=== PATIENT | female | born 1980 | race Caucasian/White ===

== ENCOUNTER 2019-05-20 06:57 | Inpatient (IN) | payer BC ==
[2019-05-20] MEDS ORDERED: Celecoxib 200 MG Cap PO ONE (07:15)
[2019-05-20] MEDS ORDERED: Acetaminophen 500 MG Tab PO ONE (07:15)
[2019-05-20] MEDS ORDERED: Scopolamine 1.5 MG Transdermal Patch TOP ONE (07:15)
[2019-05-20] MEDS ORDERED: Gabapentin 300 MG Cap PO ONE (07:15)
[2019-05-20] MEDS ORDERED: Ondansetron 4 MG/2 ML SDV ONE (07:58)
[2019-05-20] MEDS ORDERED: Glycopyrrolate 0.2 MG/ML 5 ML MDV ONE (07:58)
[2019-05-20] MEDS ORDERED: Propofol 200 MG/20 ML SDV ONE (07:58)
[2019-05-20] MEDS ORDERED: Succinylcholine 200 MG/10 ML MDV ONE (07:58)
[2019-05-20] MEDS ORDERED: Rocuronium 50 MG/5 ML Vial ONE (07:58)
[2019-05-20] MEDS ORDERED: Neostigmine Methylsulfate 1 MG/ML 5 ML Syringe ONE (07:58)
[2019-05-20] MEDS ORDERED: fentaNYL 250 MCG/5 ML SDV ONE (07:58)
[2019-05-20] MEDS ORDERED: Dexamethasone 4 MG/ML SDV ONE (07:58)
[2019-05-20] MEDS ORDERED: Dextrose 5%-Lactated Ringers 1,000 ML IV SCH (08:00)
[2019-05-20] MEDS ORDERED: Lactated Ringers 1,000 ML ONE (08:01)
[2019-05-20] MEDS ORDERED: Ketamine 500 MG/5 ML MDV IV SCH (09:00)
[2019-05-20] MEDS ORDERED: Magnesium Sulfate 6.5 GM in Sodium Chloride 0.9% 250 ML IV ONE (09:00)
[2019-05-20] MEDS ORDERED: Ketamine 50 MG in Sodium Chloride 0.9% 49.5 ML IV SCH (09:00)
[2019-05-20] MEDS ORDERED: cefOXitin 2 GM in Sodium Chloride 0.9% 50 ML IV ONE (09:00)
[2019-05-20] MEDS: cefOXitin 2 GM Vial ONE ×2 (09:51→10:05)
[2019-05-20] MEDS ORDERED: fentaNYL 100 MCG/2 ML SDV IVPUSH ONE (10:51)
[2019-05-20] MEDS ORDERED: hydrOXYzine HCL 100 MG/2 ML SDV IM ONE (10:51)
[2019-05-20] MEDS ORDERED: Labetalol 20 MG/4 ML Syringe IVPUSH PRN (11:59)
[2019-05-20] MEDS ORDERED: hydrOXYzine HCL 100 MG/2 ML SDV IM PRN (11:59)
[2019-05-20] MEDS ORDERED: Cyclobenzaprine 10 MG Tab PO PRN (11:59)
[2019-05-20] MEDS ORDERED: HYDROmorphone 1 MG/ML Syringe IV PRN (11:59)
[2019-05-20] MEDS ORDERED: Calcium Gluconate 10% 1 GM/10 ML SDV IVPUSH PRN (11:59)
[2019-05-20] MEDS ORDERED: Metoclopramide 10 MG/2 ML SDV IVPUSH PRN (11:59)
[2019-05-20] MEDS ORDERED: oxyCODONE 5 MG Tab PO PRN (11:59)
[2019-05-20] MEDS ORDERED: HYDROmorphone 0.5 MG/0.5 ML Syringe IVPUSH PRN (11:59)
[2019-05-20] MEDS ORDERED: diphenhydrAMINE 50 MG/ML SDV IVPUSH PRN (11:59)
[2019-05-20] MEDS ORDERED: Acetaminophen 500 MG Tab PO PRN (11:59)
[2019-05-20] MEDS ORDERED: LORazepam 1 MG Tab PO PRN (12:02)
[2019-05-20] MEDS: Ondansetron 4 MG/2 ML SDV IVPUSH PRN ×2 (13:11→17:18)
[2019-05-20] MEDS: Dextrose 5%-Lactated Ringers 1,000 ML IV SCH ×2 (14:14→23:42)
[2019-05-20] MEDS: Gabapentin 250 MG/5 ML Solution ML 470 ML Bottle PO SCH ×2 (14:46→20:25)
[2019-05-20] MEDS ORDERED: Pantoprazole 40 MG Vial IVPUSH SCH (16:00)
[2019-05-20] MEDS ORDERED: MVI, Adult with Vitamin K 10 ML, Thiamine 200 MG, Chromium/Copper/Mang/Selen/Zn 1 ML in... IV SCH ×4 (16:00)
[2019-05-20] MEDS: cefOXitin 2 GM in Sodium Chloride 0.9% 50 ML IV SCH ×2 (16:28→21:13)
[2019-05-20] MEDS: Heparin Sodium 5,000 Units/ML Vial SUBCUT SCH (16:31)
[2019-05-20] MEDS: Acetaminophen 500 MG Tab PO SCH (16:32)
[2019-05-21] MEDS: Acetaminophen 500 MG Tab PO SCH ×3 (00:56→16:35)
[2019-05-21] MEDS: cefOXitin 2 GM in Sodium Chloride 0.9% 50 ML IV SCH (03:39)
[2019-05-21] MEDS: Heparin Sodium 5,000 Units/ML Vial SUBCUT SCH ×2 (03:42→16:34)
[2019-05-21] MEDS ORDERED: Iopamidol 612 MG/ML 50 ML SDV PO STA (03:53)
[2019-05-21] MEDS: Dextrose 5%-Lactated Ringers 1,000 ML IV SCH (05:36)
[2019-05-21] MEDS ORDERED: LORazepam 1 MG Tab PO PRN (07:26)
[2019-05-21] MEDS ORDERED: Dextrose 5%-Lactated Ringers 1,000 ML IV SCH (07:30)
[2019-05-21] MEDS: Celecoxib 200 MG Cap PO SCH ×2 (08:06→20:38)
[2019-05-21] MEDS: FLUoxetine 20 MG Cap PO SCH (08:06)
[2019-05-21] MEDS: Gabapentin 250 MG/5 ML Solution ML 470 ML Bottle PO SCH ×3 (08:11→20:38)
[2019-05-21] MEDS: SCOPOLAMINE PATCH CHECK TOP SCH (08:18)
--- NOTE | 2019-05-21 08:30 | PN ---
DATE OF SERVICE: 05/21/2019 SUBJECTIVE: Erika is postoperative day #1. Her upper GI this morning was normal. She has been up, ambulating. Oral intake on a step 1 gastric bypass diet was 540. Urine output 2700. TIO drain put out 200 mL of a light red drainage. Pain has been controlled. REVIEW OF SYSTEMS: Remainder of review of systems negative for any pertinent positives and negatives. OBJECTIVE: GENERAL: Erika Quiroga is a pleasant 38-year-old female. Alert and orientated. VITAL SIGNS: TPR at 07:30, 97.9, 71, 16, blood pressure 148/91. HEENT: Negative. NECK: Supple. HEART: Regular rate and rhythm. LUNGS: Clear. ABDOMEN: Dressings dry and intact. Abdominal binder is on. EXTREMITIES: Without peripheral edema. ASSESSMENT: Laparoscopic sleeve gastrectomy, liver biopsy, repair of diaphragmatic hernia and excision of mediastinal lipoma for morbid obesity, hepatomegaly, diaphragmatic hernia, mediastinal lipoma. Date of surgery: 05/20/2019. Surgeon: Sam Durham MD. PLAN: Decrease IV to 100 mL per hour. Discontinue cardiac monitoring. May shower. Step 2 gastric bypass diet with no cereal. Zofran ODT 4 mg sublingual q.4 hours p.r.n. nausea. May convert IV to saline lock if oral intake around 1000 mL. Communication order: 3 med cups at bedside to record intake and to drink 1 med cup every 20 minutes or 3 per hour. Fluoxetine 40 mg p.o. daily and lorazepam/Ativan 1 mg p.o. as directed p.r.n. Continue good pulmonary toilet. We will evaluate p.r.n. or in a.m. Annemarie Quiroga PA-C /[id number]
--- NOTE | 2019-05-21 08:55 | CR ---
[facility] HISTORY: Postbariatric surgery FINDINGS: Patient swallowed water-soluble contrast. Upright views of the abdomen show no evidence of extravasation or obstruction. Surgical drain is in place. IMPRESSION: Status post bariatric surgery No extravasation or obstruction seen
[2019-05-21] MEDS ORDERED: Non-Formulary Medication 1 Each (Fluoxetine Hcl [Fluoxetine Hcl] 40 MG) PO SCH (09:00)
[2019-05-21] MEDS ORDERED: CHECK SCOPOLAMINE PATCH DAILY TOP SCH (09:00)
[2019-05-21] MEDS ORDERED: Pantoprazole 40 MG Delayed-Release Granules 1 Packet PO SCH (16:00)
[2019-05-21] MEDS: Ondansetron 4 MG Tab.DIS PO PRN ×2 (16:42→20:39)
[2019-05-22] MEDS: Acetaminophen 500 MG Tab PO SCH ×2 (00:49→07:28)
[2019-05-22] MEDS: Heparin Sodium 5,000 Units/ML Vial SUBCUT SCH (05:15)
--- NOTE | 2019-05-22 08:46 | DISCH ---
ADMISSION DIAGNOSES: 1. Morbid obesity. 2. BMI 41.3. 3. Mild depression. 4. Severe obstructive sleep apnea. 5. Herpes simplex vulvovaginitis. DISCHARGE DIAGNOSES: 1. Laparoscopic sleeve gastrectomy, liver biopsy, repair of diaphragmatic hernia, and excision of mediastinal lipoma for morbid obesity, hepatomegaly, diaphragmatic hernia, and mediastinal lipoma. 2. Date of surgery: 05/20/2019. Surgeon: Sam Durham MD. HISTORY: Erika Quiroga is a pleasant 38-year-old female with longstanding history of morbid obesity and increasing comorbidities. After preoperative evaluation and discussion of possible risks and possible complications, she wished to proceed with surgical procedure. HOSPITAL COURSE: Erika had her surgery on 05/20/2019. She had no operative complications. On postoperative day #1, her upper GI was normal. She was started on step 2 gastric bypass with no cereal. IV was decreased. She was able to shower. Her activity was good. Vital signs remained stable. On postoperative day #2, pain was controlled. Oral intake adequate. She received dietary instruction of vitamin B12 1000 mcg IM injection and she was able to be discharged to home in stable condition. PHYSICAL EXAMINATION: GENERAL: Erika Quiroga is a 38-year-old female. VITAL SIGNS: Height is 5 feet 10 inches, weight is 288 pounds. BMI is 41.3. TPR at 03:10, 97.2; 78, 16, blood pressure 108/50. HEENT: Negative. NECK: Supple. HEART: Regular rate and rhythm. LUNGS: Clear. ABDOMEN: Sutures intact at the time of exam. TIO drain was in, it will be discontinued prior to discharge. Abdominal binder is on. EXTREMITIES: Without peripheral edema. DISPOSITION: Discharged to home. CONDITION: Stable and improving. FOLLOWUP: Appointment with Annemarie Quiroga PA-C, on 05/28/2019 at 9:15 a.m. Appointment to be at [place], [place]. HOME MEDICATIONS: 1. Tylenol 1000 mg every 8 hours for pain. 2. Celebrex 200 mg p.o. b.i.d. 3. Zofran ODT 4 mg every 4 hours p.r.n. nausea. 4. She is to resume;. a. Fluoxetine 40 mg oral daily. b. Lorazepam 1 mg oral as directed p.r.n. anxiety. c. Valacyclovir 1000 mg p.o. oral as needed 1 tablet daily for 5 days. 5. Discontinue taking vitamins and supplements until first postop appointment. DIET: Step 2 gastric bypass diet with no cereal for 30 days until 06/21/2019. ACTIVITY AFTER DISCHARGE: No lifting over 10 pounds for 2 weeks. Other activity; walk inside your home 6 times a day. Driving: Do not drive for 1 week. Shower/bathing: May shower. DISCHARGE INSTRUCTIONS: Notify provider if any fever, increased pain, nausea, vomiting. Wear abdominal binder for 2 weeks and then as tolerated. SPECIAL INSTRUCTIONS: Use incentive spirometer 10 times every hour while awake for 1 week.
[2019-05-22] MEDS ORDERED: Cyanocobalamin (Vitamin B12) 1,000 MCG/ML SDV IM ONE (09:00)
[2019-05-22] MEDS: FLUoxetine 20 MG Cap PO SCH (09:24)
[2019-05-22] MEDS: SCOPOLAMINE PATCH CHECK TOP SCH (09:25)
[2019-05-22] MEDS: Celecoxib 200 MG Cap PO SCH (09:25)
[2019-05-22] MEDS: Gabapentin 250 MG/5 ML Solution ML 470 ML Bottle PO SCH (09:32)
--- NOTE | 2019-05-30 08:18 | OR ---
DATE OF PROCEDURE: 05/20/2019 SURGEON: Sam Durham MD PREOPERATIVE DIAGNOSIS: Morbid obesity. POSTOPERATIVE DIAGNOSES: 1. Morbid obesity. 2. Marked hepatomegaly. 3. Paraesophageal diaphragmatic hernia. 4. Mediastinal lipoma. OPERATIVE PROCEDURES: 1. Laparoscopic sleeve gastrectomy (84837). 2. Marco A-Cut needle liver biopsy (63166). 3. Repair of paraesophageal diaphragmatic hernia (30032). 4. Excision of mediastinal lipoma (44721). ANESTHESIA: General. ASSOCIATE MUSIC PROFESSOR: Annemarie Quiroga PA-C. INDICATIONS FOR PROCEDURE: This is a 38-year-old female presenting with longstanding morbid obesity and increasingly significant comorbidities. After preoperative evaluation and discussion, she wished to proceed with a sleeve gastrectomy. Potential risks of the procedure including bleeding, infection, leaks from the staple lines as well as possibility of cardiopulmonary, septic, or hemorrhagic complications leading to were discussed, and the patient wishes to proceed. DETAILS OF PROCEDURE: The patient was taken to the operating room, placed in a supine position. After general endotracheal anesthesia was induced, she was converted to a lithotomy position and the abdomen prepped and draped. At 15 cm inferior and 5 cm left of the xiphoid process, transverse incision was made and the peritoneal cavity entered under direct vision with an Optiview trocar, inflated to 15 mmHg pressure with CO2. Laparoscope was then reinserted. No underlying trocar insertion site injuries were seen. Following this, 5 additional trocars were placed across the upper and mid abdomen. Bilateral transversus abdominis plane blocks were then placed. Liver was noted to be markedly enlarged and fatty infiltrated and Marco A-Cut needle liver biopsies were obtained from the left lobe of liver. Hemostasis at the biopsy site was accomplished with electrocautery. At this point, the liver was retracted anteriorly. The patient was noted to have a significant paraesophageal diaphragmatic hernia with prolapse of some perigastric fat, omentum, and some of the gastric fundus in a plane anterior to the course of the esophagus. This was reduced. The peritoneum overlying it was incised and we dissected downward. During the course of dissection, mediastinal lipoma was encountered and this was excised to allow a more adequate closure of the crural defect. Once this was dissected off, an anterior repair of the crural defect was accomplished with some 0 Ethibond sutures reinforced with PTFE pledgets. At this point, the omentum along the mid greater curvature was divided from the stomach with Harmonic Scalpel. This dissection then continued proximally across the short gastric vessels, including the highest and short gastric vessels. Care was taken to more or less skeletonize the left ashwin of the diaphragm so as to avoid a large proximal gastric fundal pouch remaining after the gastrectomy procedure. The dissection then continued moving from the omentum down to a level 0.2 cm proximal to the pylorus. The initial staple lines were then marked out with electrocautery, across the antrum and then underneath incisura angularis, with care taken to avoid overtightening in that area. The first few staple lines were then accomplished with TIM unreinforced black loads. At that point, Anesthesia passed a tube orally and positioned along the lesser curvature and from there into the antrum. This was a suction tube, and once this was in position, this was placed on suction, and the remainder of the gastrectomy was then accomplished along the edges of the tube with combination of reinforced black and purple loads. At the highest most point, slight leftward deviation of the staple line was undertaken so as to avoid stapling on the esophagus, to limit the risk of leak in that area. At that point, the gastrectomy specimen was then displaced downward. The area of dissection was inspected, no bleeding or other problems were noted. Fibrin sealant was then used to reinforce the area around the esophagogastric junction and to the lesser extent along the entire staple line. The omentum was then brought up along the staple line and kept in position in this case by simply adhering to the fibrin sealant. The oral tube was then taken off suction, and with the duodenum being compressed and the area being flooded with antibiotic-containing saline solution, air was injected into that tube causing marked distention of the remaining stomach and no bubbles or other signs of leak were seen. The tube was then removed. At this point, a Santos-Kelly drain was placed through the left lateral trocar site and positioned adjacent to the esophagogastric junction area and from there into the splenic fossa. The trocars were then sequentially removed. The peritoneal cavity deflated. Incisions were closed with 4-0 Vicryl skin stitch. Drains were fixed with 4-0 Vicryl stitch as well. The patient was taken to the recovery room in satisfactory condition. Physician assistant professor of criminal justice, Annemarie Quiroga, played an essential role in assisting in this case helping to position the patient, retract structures as needed, as well as suturing and cutting sutures when indicated. Her presence improved patient safety and decreased the operative time. Sam Durham MD /[id number]
== END 2019-05-22 10:30 | disposition home or self-care (01) | DRG 403 ==
LOC: JP.SDS 06:57 → JP.MS 06:57 → EDSTATUS 07:15 → JP.MS 10:20
PROVIDERS: ADMIT Surgery; ATTEND Surgery
PROC: 0DB64Z3 Excision of Stomach, Percutaneous Endoscopic Approach, Vertical (ICD-10-PCS; principal; 2019-05-20)
PROC: 0BQT4ZZ Repair Diaphragm, Percutaneous Endoscopic Approach (ICD-10-PCS; 2019-05-20)
PROC: 0JB63ZZ Excision of Chest Subcutaneous Tissue and Fascia, Percutaneous Approach (ICD-10-PCS; 2019-05-20)
PROC: 0FB04ZX Excision of Liver, Percutaneous Endoscopic Approach, Diagnostic (ICD-10-PCS; 2019-05-20)
DX: E66.01 Morbid (severe) obesity due to excess calories (principal); F32.9 Major depressive disorder, single episode, unspecified; G47.33 Obstructive sleep apnea (adult) (pediatric); A60.04 Herpesviral vulvovaginitis; R16.0 Hepatomegaly, not elsewhere classified; K44.9 Diaphragmatic hernia without obstruction or gangrene; D17.4 Benign lipomatous neoplasm of intrathoracic organs; Z68.41 Body mass index [BMI] 40.0-44.9, adult; Z79.899 Other long term (current) drug therapy; Z88.0 Allergy status to penicillin; Z87.891 Personal history of nicotine dependence
CPT/HCPCS: 36415; 74240; 74240-26; 80053; 81025; 85027; 86850; 86900; 86901; 94762; A9270-GY; C9113; J0171; J0330; J0694; J1100; J1644; J2405; J2704; J2710; J2765; J2795; J3010; J3410; J3411; J3420; J3475; J3490; J7030; J7050; J7120; J7121; Q9967

== ENCOUNTER 2021-05-28 05:26 | Day surgery (SDC) | payer BC ==
[2021-05-28] MEDS ORDERED: Acetaminophen 500 MG Tab PO ONE (06:00)
[2021-05-28] MEDS ORDERED: Dextrose 5%-Lactated Ringers 1,000 ML IV SCH (06:00)
[2021-05-28] MEDS ORDERED: cefOXitin 2 GM in Sodium Chloride 0.9% 50 ML IV ONE ×2 (06:30→07:30)
[2021-05-28] MEDS ORDERED: Lidocaine 1% with EPINEPHrine 1:100,000 50 ML MDV ONE (06:39)
[2021-05-28] MEDS ORDERED: Bupivacaine 0.5% 50 ML MDV ONE (06:39)
[2021-05-28] MEDS ORDERED: Bupivacaine 0.5%/EPINEPHrine 1:200,000 50 ML MDV ONE (06:47)
[2021-05-28] MEDS ORDERED: Dexamethasone 4 MG/ML SDV ONE (07:02)
[2021-05-28] MEDS ORDERED: Rocuronium 50 MG/5 ML Vial ONE (07:02)
[2021-05-28] MEDS ORDERED: Neostigmine Methylsulfate 1 MG/ML 5 ML Syringe ONE (07:02)
[2021-05-28] MEDS ORDERED: Glycopyrrolate 0.2 MG/ML 5 ML MDV ONE (07:02)
[2021-05-28] MEDS ORDERED: Propofol 200 MG/20 ML SDV ONE (07:02)
[2021-05-28] MEDS ORDERED: fentaNYL 250 MCG/5 ML SDV ONE (07:02)
[2021-05-28] MEDS ORDERED: Ondansetron 4 MG/2 ML SDV ONE (07:02)
[2021-05-28] MEDS ORDERED: Ropivacaine 50 ML, dexAMETHasone 8 MG, EPINEPHrine 0.4 MG, Sodium Chloride 0.9% 27.6 ML NERVRT SCH ×4 (07:30)
[2021-05-28] MEDS ORDERED: Ketamine 20 MG in Sodium Chloride 0.9% 19.8 ML IV SCH (07:30)
[2021-05-28] MEDS ORDERED: Ketamine 500 MG/5 ML MDV IV SCH (07:30)
[2021-05-28] MEDS ORDERED: fentaNYL 100 MCG/2 ML SDV ONE (08:00)
[2021-05-28] MEDS ORDERED: hydrOXYzine HCL 100 MG/2 ML SDV IM ONE (08:24)
[2021-05-28] MEDS ORDERED: HYDROmorphone 2 MG Tab PO PRN (09:50)
== END 2021-05-28 12:03 | disposition home or self-care (01) ==
LOC: JP.SDS 05:26
PROVIDERS: ATTEND Surgery
DX: K80.10 Calculus of gallbladder with chronic cholecystitis without obstruction (principal); K82.8 Other specified diseases of gallbladder; G47.33 Obstructive sleep apnea (adult) (pediatric); E66.9 Obesity, unspecified; Z68.32 Body mass index [BMI] 32.0-32.9, adult; Z79.899 Other long term (current) drug therapy; Z88.0 Allergy status to penicillin; Z88.8 Allergy status to other drugs, medicaments and biological substances; Z98.890 Other specified postprocedural states; Z87.891 Personal history of nicotine dependence
CPT/HCPCS: 36415; 47562; 80053; 81025; 83735; 84100; 85027; A9270; J0171; J0694; J1100; J2405; J2704; J2710; J2795; J3010; J3410; J3490; J7121; 88304